=== PATIENT | female | born 1945 | race Caucasian/White ===

== ENCOUNTER 2017-07-13 14:42 | Emergency (ER) | payer OTHER ==
[~2017-07-13] VITALS: Ht 170.1 cm; Wt 60.3 kg
[~2017-07-13 14:42] MED LIST: AMLODIPINE BESYL5 MG PO; AMLODIPINE5 MG PO; ANTIVERT/2525 MG PO; GUAIFENESIN AND5 ML PO; LEVAQUIN750 M1 PO; PREDNISONE10 MG PO; ROBITUSSIN5 ML PO; TESSALON PERLE200 MG PO; THIOTHIXENE5 MG PO; ZITHROMAX Z PA250 MG PO; ZOFRAN ODT4 MG SL; ZYRTEC10 MG PO
[2017-07-13] MEDS ORDERED: NYST SUSP PO (15:28)
== END 2017-07-13 15:41 | disposition home or self-care (01) ==
LOC: ED 14:42
DX: B37.0 Candidal stomatitis (principal); F17.200 Nicotine dependence, unspecified, uncomplicated; J44.9 Chronic obstructive pulmonary disease, unspecified; I10 Essential (primary) hypertension; Z88.8 Allergy status to other drugs, medicaments and biological substances; Z98.42 Cataract extraction status, left eye; Z79.899 Other long term (current) drug therapy

== ENCOUNTER 2018-01-01 07:57 | Emergency (ER) | payer OTHER ==
[~2018-01-01] VITALS: Ht 165.1 cm; Wt 65.8 kg
[~2018-01-01 07:57] MED LIST changes: +NYST SUSP PO
== END 2018-01-01 09:50 | disposition home or self-care (01) ==
LOC: ED 07:57
DX: S93.602A Unspecified sprain of left foot, initial encounter (principal); J44.9 Chronic obstructive pulmonary disease, unspecified; I10 Essential (primary) hypertension; Z87.891 Personal history of nicotine dependence; Z79.899 Other long term (current) drug therapy; Z88.8 Allergy status to other drugs, medicaments and biological substances; X50.1XXA Overexertion from prolonged static or awkward postures, initial encounter; Y93.89 Activity, other specified; Y92.89 Other specified places as the place of occurrence of the external cause; Y99.9 Unspecified external cause status

== ENCOUNTER → 2018-06-22 | Outpatient (CLI) | payer OTHER | END | disposition home or self-care (01) | LOC: RAD 11:06 | DX: M81.0 Age-related osteoporosis without current pathological fracture (principal); S92.919D Unspecified fracture of unspecified toe(s), subsequent encounter for fracture with routine healing; Z78.0 Asymptomatic menopausal state; Z90.710 Acquired absence of both cervix and uterus; X58.XXXD Exposure to other specified factors, subsequent encounter ==

== ENCOUNTER 2020-11-05 17:09 | Emergency (ER) | payer OTHER ==
[2020-11-05 19:50] LABS: BILIRUBIN Negative (Negative); BLOOD Negative (Negative); CLARITY Clear (Clear); COLOR Yellow (Yellow); GLUCOSE Negative (Negative); KETONE Negative (Negative); LEUKO ESTERASE Negative (Negative); NITRITE Negative (Negative); SPECIFIC GRAVITY <= 1.005 (1.001-1.030); UROBILINOGEN 0.2 E.U./dl (0.0-1.0)
[2020-11-05 20:08] LABS: BACTERIA TRACE; WBC 0-2 wbc/hpf (0-5)
[2020-11-05 20:28] LABS: BASO # 0.1 10*3/uL (0.0-0.1); EOS # 0.1 10*3/uL (0.0-0.4); EOS % 1.9 % (1.0-4.0); HEMATOCRIT 47.6 % (37.0-47.0); LYMPH # 1.3 10*3/uL (1.3-4.4); LYMPH % 22.5 % (27.0-41.0); MEAN CELL VOLUME 88.1 fl (81.0-99.0); MEAN CORPUSCULAR HGB CONC 31.7 g/dl (33.0-37.0); MEAN PLATELET VOLUME 9.6 fl (9.6-12.3); MONO # 0.6 10*3/uL (0.1-1.0); MONO % 9.9 % (3.0-9.0); NEUT # 3.7 10*3/uL (2.3-7.9); NEUT % 64.4 % (47.0-73.0); PLATELET COUNT AUTOMATED 238 10*3/uL (130-400); RED CELL DISTRI WIDTH 14.9 % (0-14.5); WHITE BLOOD COUNT 5.7 10*3/uL (4.8-10.8)
[2020-11-05 20:44] LABS: ALBUMIN 3.9 gm/dl (3.1-4.5); ALKALINE PHOSPHATASE 70 U/L (45-117); BUN 9 mg/dl (7-24); CHLORIDE 103 mmol/L (98-107); CREATININE 0.65 mg/dL (0.55-1.02); LIPASE 67 U/L (73-393); POTASSIUM 4.1 mmol/L (3.5-5.1); SGOT/AST 14 IU/L (3-35); SGPT/ALT 15 U/L (12-78); SODIUM 139 mmol/L (136-145)
== END 2020-11-05 23:28 | disposition left against medical advice (07) ==
LOC: ED 17:09
PROVIDERS: Emergency Medicine
DX: R10.2 Pelvic and perineal pain (principal); R11.2 Nausea with vomiting, unspecified; J44.9 Chronic obstructive pulmonary disease, unspecified; F32.9 Major depressive disorder, single episode, unspecified; I10 Essential (primary) hypertension; Z90.711 Acquired absence of uterus with remaining cervical stump; Z88.8 Allergy status to other drugs, medicaments and biological substances; Z79.899 Other long term (current) drug therapy; Z98.890 Other specified postprocedural states; Z87.891 Personal history of nicotine dependence

== ENCOUNTER → 2021-01-08 | Outpatient (CLI) | payer OTHER ==
[2021-01-08 14:26] LABS: CREATININE 0.69 mg/dL (0.55-1.02)
== END | disposition home or self-care (01) ==
LOC: LAB 13:55 → MRI 15:00
PROVIDERS: Radiology Diagnostic Radiology; ATTEND Family Medicine
DX: Z01.818 Encounter for other preprocedural examination (principal); R93.5 Abnormal findings on diagnostic imaging of other abdominal regions, including retroperitoneum

== ENCOUNTER → 2021-01-28 | Outpatient (CLI) | payer OTHER ==
[2021-01-28 07:50] LABS: CREATININE 0.72 mg/dL (0.55-1.02)
== END | disposition home or self-care (01) ==
LOC: LAB 07:21 → CT 08:00
PROVIDERS: ATTEND Family Medicine
DX: S06.0X9A Concussion with loss of consciousness of unspecified duration, initial encounter (principal); E22.9 Hyperfunction of pituitary gland, unspecified; X58.XXXA Exposure to other specified factors, initial encounter

== ENCOUNTER → 2021-02-03 | Outpatient (CLI) | payer OTHER | END | disposition home or self-care (01) | LOC: US 01-29 14:00 | PROVIDERS: ATTEND Family Medicine | DX: R22.43 Localized swelling, mass and lump, lower limb, bilateral (principal); M79.606 Pain in leg, unspecified; R09.89 Other specified symptoms and signs involving the circulatory and respiratory systems ==

== ENCOUNTER 2022-01-02 17:09 | Emergency (ER) | payer OTHER ==
[~2022-01-02 17:09] MED LIST changes: +OMNICEF300 MG PO; +PROVENTIL HFA6.7 GM INH; +ZITHROMAX250 MG PO
[2022-01-02 17:44] LABS: BASO % 0.4 % (0.0-1.0); EOS % 0.1 % (1.0-4.0); HEMATOCRIT 44.6 % (37.0-47.0); LYMPH # 0.8 10*3/uL (1.3-4.4); LYMPH % 6.8 % (27.0-41.0); MEAN CELL VOLUME 88.1 fl (81.0-99.0); MEAN CORPUSCULAR HGB 28.7 pg (27.0-31.0); MEAN CORPUSCULAR HGB CONC 32.5 g/dl (33.0-37.0); MEAN PLATELET VOLUME 9.7 fl (9.6-12.3); MONO # 0.8 10*3/uL (0.1-1.0); MONO % 7.2 % (3.0-9.0); NEUT # 9.7 10*3/uL (2.3-7.9); NEUT % 85.1 % (47.0-73.0); PLATELET COUNT AUTOMATED 192 10*3/uL (130-400); RED BLOOD COUNT 5.06 10*6/uL (4.10-5.10); RED CELL DISTRI WIDTH 14.7 % (0-14.5); WHITE BLOOD COUNT 11.4 10*3/uL (4.8-10.8)
[2022-01-02 18:01] LABS: BUN 13 mg/dl (7-24); CHLORIDE 103 mmol/L (98-107); POTASSIUM 4.3 mmol/L (3.5-5.1); SGOT/AST 16 IU/L (3-35); SGPT/ALT 18 U/L (12-78); SODIUM 140 mmol/L (136-145); TOTAL PROTEIN 6.5 gm/dL (6.4-8.2)
[2022-01-02 18:02] LABS: ALKALINE PHOSPHATASE 77 U/L (45-117)
[2022-01-02 20:11] LABS: BILIRUBIN Negative (Negative); BLOOD Negative (Negative); CLARITY Clear (Clear); COLOR Yellow (Yellow); GLUCOSE Negative (Negative); KETONE 1+ (Negative); LEUKO ESTERASE Negative (Negative); NITRITE Negative (Negative); PH 7.5 (4.5-8.0)
[2022-01-02 20:32] LABS: BACTERIA 1+; EPITHELIAL CELLS TNTC; WBC 0-2 wbc/hpf (0-5)
[2022-01-02] MEDS ORDERED: Meclizine25 MG PO (22:12)
== END 2022-01-02 22:27 | disposition home or self-care (01) ==
LOC: ED 17:09
PROVIDERS: Emergency Medicine
DX: J44.1 Chronic obstructive pulmonary disease with (acute) exacerbation (principal); R42 Dizziness and giddiness; F17.210 Nicotine dependence, cigarettes, uncomplicated; Z98.890 Other specified postprocedural states; Z79.899 Other long term (current) drug therapy; Z88.8 Allergy status to other drugs, medicaments and biological substances; Z79.2 Long term (current) use of antibiotics

== ENCOUNTER → 2022-05-04 | Outpatient (CLI) | payer OTHER ==
[~2022-05-04] MED LIST changes: +Meclizine25 MG PO
== END | disposition home or self-care (01) ==
LOC: US 04-22 10:00
PROVIDERS: ATTEND Family Medicine
DX: R60.0 Localized edema (principal)

== ENCOUNTER 2023-04-26 22:01 | Emergency (ER) | payer OTHER ==
[~2023-04-26] VITALS: Wt 65.0 kg
[~2023-04-26 22:01] MED LIST changes: +ALLERGY RELIEF5 MG PO; +CEFDINIR300 MG PO; +METOPROLOL SUCC25 M2 PO; +NAVANE5 MG PO; +NORVASC5 MG PO; +TRELEGY ELLIPT1 EACH INH; +XARE20MG PO
[2023-04-26 22:41] LABS: BASO # 0.1 10*3/uL (0.0-0.1); BASO % 0.6 % (0.0-1.0); EOS # 0.1 10*3/uL (0.0-0.4); EOS % 0.8 % (1.0-4.0); HEMATOCRIT 42.8 % (37.0-47.0); LYMPH # 0.8 10*3/uL (1.3-4.4); LYMPH % 9.8 % (27.0-41.0); MEAN CELL VOLUME 87.5 fl (81.0-99.0); MEAN PLATELET VOLUME 9.5 fl (9.6-12.3); MONO % 13.2 % (3.0-9.0); NEUT # 5.9 10*3/uL (2.3-7.9); NEUT % 75.2 % (47.0-73.0); PLATELET COUNT AUTOMATED 203 10*3/uL (130-400); RED BLOOD COUNT 4.89 10*6/uL (4.10-5.10); RED CELL DISTRI WIDTH 14.3 % (0-14.5); WHITE BLOOD COUNT 7.9 10*3/uL (4.8-10.8)
[2023-04-26 23:04] LABS: ALKALINE PHOSPHATASE 98 U/L (46-116); BUN 9 mg/dl (9-23); CHLORIDE 99 mmol/L (98-107); POTASSIUM 3.9 mmol/L (3.4-5.1); TOTAL PROTEIN 7.4 gm/dL (6.0-8.0)
[2023-04-26 23:05] LABS: SGPT/ALT < 7 U/L (5-49)
[2023-04-26] MEDS ORDERED: PREDNISONE20 M1 PO (23:27)
== END 2023-04-26 23:49 | disposition home or self-care (01) ==
LOC: ED 22:01
PROVIDERS: Nurse Practitioner
DX: J11.1 Influenza due to unidentified influenza virus with other respiratory manifestations (principal); B97.4 Respiratory syncytial virus as the cause of diseases classified elsewhere; I10 Essential (primary) hypertension; J44.9 Chronic obstructive pulmonary disease, unspecified; Z88.8 Allergy status to other drugs, medicaments and biological substances; Z90.711 Acquired absence of uterus with remaining cervical stump; Z98.890 Other specified postprocedural states; F17.290 Nicotine dependence, other tobacco product, uncomplicated; Z20.822 Contact with and (suspected) exposure to COVID-19

== ENCOUNTER 2023-10-17 09:31 | Emergency (ER) | payer OTHER ==
[~2023-10-17] VITALS: Ht 170.1 cm; Wt 54.4 kg
[~2023-10-17 09:31] MED LIST changes: +Carafate1 GM PO; +DEXAMETHASONE6 MG PO; +DOXYCYCLINE HY100 M3 PO; +ELIQUIS5 M1 PO; +LISINOPRIL5 MG PO; +PACERONE200 MG PO; +PREDNISONE20 M1 PO; +VIBRAMYCIN HYC100 MG PO; +VITAMIN D350 MC2 PO
[2023-10-17] MEDS ORDERED: AMIODARONE HYD200 MG PO (10:17)
[2023-10-17] MEDS ORDERED: POTASSIUM CHLO20 ME3 PO (10:19)
[2023-10-17] MEDS ORDERED: ALBUTEROL HFA 90 MCG INH (10:21)
[2023-10-17 10:48] LABS: BASO # 0.1 10*3/uL (0.0-0.1); BASO % 0.8 % (0.0-1.0); EOS # 0.2 10*3/uL (0.0-0.4); EOS % 2.7 % (1.0-4.0); HEMATOCRIT 36.7 % (37.0-47.0); LYMPH # 1.2 10*3/uL (1.3-4.4); LYMPH % 17.5 % (27.0-41.0); MEAN CELL VOLUME 93.1 fl (81.0-99.0); MEAN CORPUSCULAR HGB 26.9 pg (27.0-31.0); MEAN CORPUSCULAR HGB CONC 28.9 g/dl (33.0-37.0); MEAN PLATELET VOLUME 10.1 fl (9.6-12.3); MONO # 0.9 10*3/uL (0.1-1.0); NEUT # 4.3 10*3/uL (2.3-7.9); NEUT % 65.7 % (47.0-73.0); PLATELET COUNT AUTOMATED 153 10*3/uL (130-400); RED BLOOD COUNT 3.94 10*6/uL (4.10-5.10); RED CELL DISTRI WIDTH 15.3 % (0-14.5); WHITE BLOOD COUNT 6.6 10*3/uL (4.8-10.8)
[2023-10-17 11:09] LABS: ALKALINE PHOSPHATASE 57 U/L (46-116); BUN 10 mg/dl (9-23); CHLORIDE 97 mmol/L (98-107); LIPASE 37 U/L (12-53); POTASSIUM 3.9 mmol/L (3.4-5.1); TOTAL PROTEIN 6.3 gm/dL (6.0-8.0)
[2023-10-17 11:14] LABS: SGPT/ALT < 7 U/L (5-49)
[2023-10-17] MEDS ORDERED: Albuterol Sulf/Ipratropium 3 ML VIAL NEB ONE (11:25)
[2023-10-17] MEDS ORDERED: methylPREDNISolone sod succ 125 MG VIAL IV ONE (11:25)
[2023-10-17] MEDS ORDERED: GOOD NEIGHBOR M25 M1 PO (13:33)
[2023-10-17] MEDS ORDERED: AMOX-CLAV 875-1 EACH PO (13:33)
== END 2023-10-17 13:36 | disposition home or self-care (01) ==
LOC: ED 09:31
PROVIDERS: Internal Medicine
DX: J44.9 Chronic obstructive pulmonary disease, unspecified (principal); R42 Dizziness and giddiness; R53.1 Weakness; I10 Essential (primary) hypertension; F41.9 Anxiety disorder, unspecified; I48.91 Unspecified atrial fibrillation; Z88.8 Allergy status to other drugs, medicaments and biological substances; Z88.7 Allergy status to serum and vaccine; Z91.018 Allergy to other foods; Z98.890 Other specified postprocedural states; Z90.711 Acquired absence of uterus with remaining cervical stump; F17.200 Nicotine dependence, unspecified, uncomplicated

== ENCOUNTER 2024-01-13 21:15 | Inpatient (IN) | payer OTHER ==
[~2024-01-13] VITALS: Ht 170.1 cm; Wt 54.4 kg
[~2024-01-13 21:15] MED LIST changes: +ALBUTEROL HFA 90 MCG INH; +AMIODARONE HYD200 MG PO; +AMOX-CLAV 875-1 EACH PO; +GOOD NEIGHBOR M25 M1 PO; +POTASSIUM CHLO20 ME3 PO
[2024-01-13 21:17] VITALS: BP 117/54
[2024-01-13 21:57] LABS: BASO % 0.5 % (0.0-1.0); EOS # 0.1 10*3/uL (0.0-0.4); EOS % 1.4 % (1.0-4.0); HEMATOCRIT 36.9 % (37.0-47.0); MEAN CELL VOLUME 91.8 fl (81.0-99.0); MEAN CORPUSCULAR HGB 27.6 pg (27.0-31.0); MEAN CORPUSCULAR HGB CONC 30.1 g/dl (33.0-37.0); MEAN PLATELET VOLUME 10.8 fl (9.6-12.3); MONO # 0.9 10*3/uL (0.1-1.0); MONO % 15.2 % (3.0-9.0); NEUT # 3.6 10*3/uL (2.3-7.9); NEUT % 63.8 % (47.0-73.0); PLATELET COUNT AUTOMATED 164 10*3/uL (130-400); RED BLOOD COUNT 4.02 10*6/uL (4.10-5.10); RED CELL DISTRI WIDTH 14.6 % (0-14.5); WHITE BLOOD COUNT 5.7 10*3/uL (4.8-10.8)
[2024-01-13 22:14] LABS: BUN 15 mg/dl (9-23); CHLORIDE 100 mmol/L (98-107); POTASSIUM 3.8 mmol/L (3.4-5.1)
[2024-01-13] MEDS ORDERED: Albuterol Sulf/Ipratropium 3 ML VIAL NEB ONE (23:55)
[2024-01-13] MEDS ORDERED: methylPREDNISolone sod succ 125 MG VIAL IV ONE (23:55)
[2024-01-14] MEDS ORDERED: Ceftriaxone Sodium 1 GM/10 ML SYR IV ONE (01:45)
[2024-01-14] MEDS ORDERED: Doxycycline Hyclate 100 MG in SODIUM CHLORIDE 0.9% 250 ML IV ONE (01:50)
[2024-01-14 02:19] VITALS: BP 158/77
[2024-01-14] MEDS ORDERED: ACETAMINOPHEN 325 MG TAB PO PRN (02:20)
[2024-01-14] MEDS ORDERED: BISACODYL 5 MG TAB PO PRN (02:20)
[2024-01-14] MEDS ORDERED: Magnesium Hydroxide 30 ML UDC PO PRN (02:20)
[2024-01-14] MEDS ORDERED: BISACODYL 10 MG SUPP R PRN (02:20)
[2024-01-14] MEDS ORDERED: ACETAMINOPHEN 650 MG SUPP R PRN (02:20)
[2024-01-14] MEDS ORDERED: Albuterol Sulf/Ipratropium 3 ML VIAL NEB SCH (02:25)
[2024-01-14 05:16] LABS: ALKALINE PHOSPHATASE 65 U/L (46-116); BUN 17 mg/dl (9-23); CHLORIDE 102 mmol/L (98-107); POTASSIUM 3.8 mmol/L (3.4-5.1); TOTAL PROTEIN 6.1 gm/dL (6.0-8.0)
[2024-01-14 05:19] LABS: SGPT/ALT < 7 U/L (5-49)
[2024-01-14 06:15] LABS: BASO % 0.4 % (0.0-1.0); EOS % 0.2 % (1.0-4.0); HEMATOCRIT 36.1 % (37.0-47.0); LYMPH # 0.3 10*3/uL (1.3-4.4); LYMPH % 7.3 % (27.0-41.0); MEAN CELL VOLUME 89.8 fl (81.0-99.0); MEAN CORPUSCULAR HGB 27.6 pg (27.0-31.0); MEAN CORPUSCULAR HGB CONC 30.7 g/dl (33.0-37.0); MEAN PLATELET VOLUME 10.6 fl (9.6-12.3); MONO # 0.1 10*3/uL (0.1-1.0); MONO % 2.4 % (3.0-9.0); NEUT % 89.3 % (47.0-73.0); PLATELET COUNT AUTOMATED 153 10*3/uL (130-400); RED BLOOD COUNT 4.02 10*6/uL (4.10-5.10); RED CELL DISTRI WIDTH 14.7 % (0-14.5); WHITE BLOOD COUNT 4.5 10*3/uL (4.8-10.8)
[2024-01-14 06:59] VITALS: BP 136/63
[2024-01-14] MEDS ORDERED: Doxycycline Hyclate 100 MG VIAL IV ONE (08:57)
[2024-01-14] MEDS ORDERED: SODIUM CHLORIDE 0.9% 250 ML BAG IV ONE (08:57)
[2024-01-14] MEDS ORDERED: methylPREDNISolone sod succ 40 MG VIAL IV SCH (10:00)
[2024-01-14] MEDS ORDERED: APIXABAN 5 MG TAB PO SCH (10:00)
[2024-01-14] MEDS ORDERED: Doxycycline Hyclate 100 MG in SODIUM CHLORIDE 0.9% 250 ML IV SCH (10:00)
[2024-01-14 11:52] VITALS: BP 151/95
[2024-01-14 12:45] VITALS: BP 144/88
[2024-01-14 16:00] VITALS: BP 142/87
[2024-01-14] MEDS ORDERED: Meclizine Hydrochloride 25 MG TAB PO PRN (16:35)
[2024-01-14] MEDS ORDERED: SUCRALFATE 1 GM TAB PO SCH (18:00)
[2024-01-14 20:00] VITALS: BP 137/77
[2024-01-14] MEDS ORDERED: Ceftriaxone Sodium 1 GM in SYRINGE INFUSION 10 ML IV SCH (22:00)
[2024-01-15] VITALS: BP 151/85
[2024-01-15 05:35] LABS: BUN 22 mg/dl (9-23); CHLORIDE 100 mmol/L (98-107); POTASSIUM 3.9 mmol/L (3.4-5.1)
[2024-01-15 06:04] LABS: BASO % 0.1 % (0.0-1.0); LYMPH # 0.5 10*3/uL (1.3-4.4); LYMPH % 4.4 % (27.0-41.0); MEAN CELL VOLUME 87.9 fl (81.0-99.0); MEAN CORPUSCULAR HGB 27.5 pg (27.0-31.0); MEAN CORPUSCULAR HGB CONC 31.3 g/dl (33.0-37.0); MEAN PLATELET VOLUME 10.7 fl (9.6-12.3); MONO # 0.5 10*3/uL (0.1-1.0); NEUT # 9.2 10*3/uL (2.3-7.9); PLATELET COUNT AUTOMATED 149 10*3/uL (130-400); RED BLOOD COUNT 3.64 10*6/uL (4.10-5.10); WHITE BLOOD COUNT 10.2 10*3/uL (4.8-10.8)
[2024-01-15 08:00] VITALS: BP 148/80
[2024-01-15] MEDS ORDERED: Magnesium Hydroxide 30 ML UDC PO PRN (09:25)
[2024-01-15] MEDS ORDERED: BISACODYL 10 MG SUPP R PRN (09:25)
[2024-01-15] MEDS ORDERED: BISACODYL 5 MG TAB PO PRN (09:25)
[2024-01-15] MEDS ORDERED: SODIUM CHLORIDE 0.9% 250 ML BAG IV ONE (09:25)
[2024-01-15] MEDS ORDERED: Albuterol Sulf/Ipratropium 3 ML VIAL NEB SCH (09:25)
[2024-01-15] MEDS ORDERED: ACETAMINOPHEN 650 MG SUPP R PRN (09:25)
[2024-01-15] MEDS ORDERED: ACETAMINOPHEN 325 MG TAB PO PRN (09:25)
[2024-01-15] MEDS ORDERED: Meclizine Hydrochloride 25 MG TAB PO PRN (09:30)
[2024-01-15] MEDS ORDERED: Amiodarone Hydrochloride 200 MG TAB PO SCH ×2 (10:00)
[2024-01-15] MEDS ORDERED: LISINOPRIL 5 MG TAB PO SCH ×2 (10:00)
[2024-01-15] MEDS ORDERED: APIXABAN 5 MG TAB PO SCH (10:00)
[2024-01-15] MEDS ORDERED: POTASSIUM CHLORIDE 20 MEQ TAB PO SCH ×2 (10:00)
[2024-01-15] MEDS ORDERED: METOPROLOL SUCCINATE XR 25 MG TAB PO SCH ×2 (10:00)
[2024-01-15] MEDS ORDERED: SUCRALFATE 1 GM TAB PO SCH (10:00)
[2024-01-15] MEDS ORDERED: Doxycycline Hyclate 100 MG in SODIUM CHLORIDE 0.9% 250 ML IV SCH (10:00)
[2024-01-15] MEDS ORDERED: methylPREDNISolone sod succ 40 MG VIAL IV SCH (10:00)
[2024-01-15] MEDS ORDERED: THIOTHIXENE 1 MG CAP PO SCH ×2 (10:00)
[2024-01-15 12:00] VITALS: BP 125/63
[2024-01-15 16:00] VITALS: BP 128/62
[2024-01-15 20:00] VITALS: BP 110/54
[2024-01-15] MEDS ORDERED: Ceftriaxone Sodium 1 GM in SYRINGE INFUSION 10 ML IV SCH (22:00)
[2024-01-16] VITALS: BP 141/64
[2024-01-16 06:31] LABS: BASO % 0.1 % (0.0-1.0); HEMATOCRIT 36.3 % (37.0-47.0); LYMPH # 0.7 10*3/uL (1.3-4.4); LYMPH % 6.2 % (27.0-41.0); MEAN CORPUSCULAR HGB 27.1 pg (27.0-31.0); MEAN CORPUSCULAR HGB CONC 29.5 g/dl (33.0-37.0); MEAN PLATELET VOLUME 10.6 fl (9.6-12.3); MONO # 0.6 10*3/uL (0.1-1.0); MONO % 5.5 % (3.0-9.0); NEUT # 9.5 10*3/uL (2.3-7.9); NEUT % 87.2 % (47.0-73.0); PLATELET COUNT AUTOMATED 182 10*3/uL (130-400); RED BLOOD COUNT 3.95 10*6/uL (4.10-5.10); RED CELL DISTRI WIDTH 15.2 % (0-14.5); WHITE BLOOD COUNT 10.9 10*3/uL (4.8-10.8)
[2024-01-16 06:49] LABS: MEAN CELL VOLUME 91.9 fl (81.0-99.0)
[2024-01-16 06:52] LABS: BUN 25 mg/dl (9-23); CHLORIDE 102 mmol/L (98-107); POTASSIUM 4.2 mmol/L (3.4-5.1)
[2024-01-16 08:00] VITALS: BP 115/66
[2024-01-16] MEDS ORDERED: LEPTOSPERMUM HONEY 4 X 5 INCH WOUND DRESSING T ONE (08:44)
[2024-01-16] MEDS ORDERED: PREDNISONE10 MG PO (11:43)
[2024-01-16 12:00] VITALS: BP 99/80
== END 2024-01-16 15:05 | disposition home or self-care (01) | DRG 190 ==
LOC: ED 21:15 → 4E 01-14 01:43 → EDHOLD 01-14 01:43 → 4E 01-14 12:36
PROVIDERS: Emergency Medicine; Family Medicine; Student in an Organized Health Care Education/Training Program; ADMIT Internal Medicine; ATTEND Internal Medicine
DX: J44.1 Chronic obstructive pulmonary disease with (acute) exacerbation (principal); J18.9 Pneumonia, unspecified organism; D64.9 Anemia, unspecified; F32.A Depression, unspecified; I10 Essential (primary) hypertension; I48.91 Unspecified atrial fibrillation; F20.9 Schizophrenia, unspecified; D72.810 Lymphocytopenia; J44.0 Chronic obstructive pulmonary disease with (acute) lower respiratory infection; R73.9 Hyperglycemia, unspecified; E78.2 Mixed hyperlipidemia; Z66 Do not resuscitate; Z88.1 Allergy status to other antibiotic agents; Z88.8 Allergy status to other drugs, medicaments and biological substances; Z91.018 Allergy to other foods; Z91.09 Other allergy status, other than to drugs and biological substances; Z79.899 Other long term (current) drug therapy; Z79.01 Long term (current) use of anticoagulants; Z79.2 Long term (current) use of antibiotics; Z87.891 Personal history of nicotine dependence; Z98.42 Cataract extraction status, left eye; Z90.711 Acquired absence of uterus with remaining cervical stump; Z82.49 Family history of ischemic heart disease and other diseases of the circulatory system; Z81.8 Family history of other mental and behavioral disorders; Z80.8 Family history of malignant neoplasm of other organs or systems; Z88.7 Allergy status to serum and vaccine

== ENCOUNTER 2024-02-06 09:51 | Inpatient (IN) | payer OTHER ==
[~2024-02-06] VITALS: Ht 170 cm; Wt 59.2 kg
[2024-02-06] VITALS (9 sets, daily range): BP systolic 86–144; BP diastolic 45–85
[2024-02-06] MEDS ORDERED: Albuterol Sulf/Ipratropium 3 ML VIAL NEB ONE (10:05)
[2024-02-06 10:29] LABS: BASO % 0.3 % (0.0-1.0); EOS # 0.2 10*3/uL (0.0-0.4); EOS % 2.8 % (1.0-4.0); HEMATOCRIT 38.2 % (37.0-47.0); LYMPH # 1.1 10*3/uL (1.3-4.4); LYMPH % 17.6 % (27.0-41.0); MEAN CELL VOLUME 95.3 fl (81.0-99.0); MEAN CORPUSCULAR HGB 27.4 pg (27.0-31.0); MEAN CORPUSCULAR HGB CONC 28.8 g/dl (33.0-37.0); MEAN PLATELET VOLUME 9.1 fl (9.6-12.3); MONO # 0.7 10*3/uL (0.1-1.0); MONO % 10.7 % (3.0-9.0); NEUT # 4.4 10*3/uL (2.3-7.9); NEUT % 68.3 % (47.0-73.0); PLATELET COUNT AUTOMATED 147 10*3/uL (130-400); RED BLOOD COUNT 4.01 10*6/uL (4.10-5.10); RED CELL DISTRI WIDTH 15.4 % (0-14.5); WHITE BLOOD COUNT 6.4 10*3/uL (4.8-10.8)
[2024-02-06 10:44] LABS: ACT PARTIAL THROMBO TIME 26.4 SECONDS (20.0-32.1)
[2024-02-06 10:49] LABS: BUN 12 mg/dl (9-23); CHLORIDE 98 mmol/L (98-107); POTASSIUM 4.3 mmol/L (3.4-5.1)
[2024-02-06 11:43] LABS: ABG BASE EXCESS 12.6 mmol/L (-2.0-2.0); ARTERIAL BLOOD GAS PH 7.362 (7.35-7.45)
[2024-02-06] MEDS ORDERED: LORazepam 2 MG/ML VIAL IV ONE (13:50)
[2024-02-06] MEDS ORDERED: AZITHROMYCIN 250 MG TAB PO ONE (15:15)
[2024-02-06] MEDS ORDERED: Ceftriaxone Sodium 1 GM/10 ML SYR IV ONE (15:15)
[2024-02-06] MEDS ORDERED: methylPREDNISolone sod succ 125 MG VIAL IV ONE (15:15)
[2024-02-06] MEDS ORDERED: Ondansetron Hydrochloride 4 MG/2 ML VIAL IV PRN (16:00)
[2024-02-06] MEDS ORDERED: ACETAMINOPHEN 325 MG TAB PO PRN (16:00)
[2024-02-06] MEDS ORDERED: MORPHINE Sulfate 2 MG/ML SYR IV PRN (16:00)
[2024-02-06] MEDS ORDERED: Albuterol Sulf/Ipratropium 3 ML VIAL NEB SCH (19:10)
[2024-02-06] MEDS ORDERED: SODIUM CHLORIDE 0.9% 1,000 ML IV ONE ×2 (19:45→20:10)
[2024-02-06] MEDS ORDERED: METOPROLOL SUCCINATE XR 25 MG TAB PO SCH (21:45)
[2024-02-06] MEDS ORDERED: APIXABAN 5 MG TAB PO SCH (22:00)
[2024-02-06] MEDS ORDERED: GUAIFENESIN 600 MG TAB ER PO SCH (22:00)
[2024-02-07] VITALS (8 sets, daily range): BP systolic 89–133; BP diastolic 50–90
[2024-02-07] MEDS ORDERED: Metoprolol Tartrate 5 MG/5 ML VIAL IV ONE (05:00)
[2024-02-07] MEDS ORDERED: SODIUM CHLORIDE 0.9% 1,000 ML IV ONE (05:05)
[2024-02-07] MEDS ORDERED: methylPREDNISolone sod succ 40 MG VIAL IV SCH (06:00)
[2024-02-07 06:57] LABS: BASO % 0.2 % (0.0-1.0); HEMATOCRIT 38.4 % (37.0-47.0); LYMPH # 0.6 10*3/uL (1.3-4.4); MEAN CELL VOLUME 92.5 fl (81.0-99.0); MEAN CORPUSCULAR HGB 27.5 pg (27.0-31.0); MEAN CORPUSCULAR HGB CONC 29.7 g/dl (33.0-37.0); MEAN PLATELET VOLUME 9.8 fl (9.6-12.3); MONO # 0.1 10*3/uL (0.1-1.0); MONO % 1.9 % (3.0-9.0); NEUT % 86.2 % (47.0-73.0); PLATELET COUNT AUTOMATED 168 10*3/uL (130-400); RED BLOOD COUNT 4.15 10*6/uL (4.10-5.10); RED CELL DISTRI WIDTH 15.2 % (0-14.5); WHITE BLOOD COUNT 5.8 10*3/uL (4.8-10.8)
[2024-02-07 07:12] LABS: ALKALINE PHOSPHATASE 59 U/L (46-116); CHLORIDE 99 mmol/L (98-107); FREE T4 1.39 ng/dl (0.89-1.76); POTASSIUM 4.6 mmol/L (3.4-5.1); SGPT/ALT 8 U/L (5-49); TOTAL PROTEIN 5.4 gm/dL (6.0-8.0)
[2024-02-07 07:13] LABS: BUN 23 mg/dl (9-23)
[2024-02-07] MEDS ORDERED: THIOTHIXENE 1 MG CAP PO SCH (10:00)
[2024-02-07] MEDS ORDERED: Amiodarone Hydrochloride 200 MG TAB PO SCH (10:00)
[2024-02-07] MEDS ORDERED: LISINOPRIL 5 MG TAB PO SCH (10:00)
[2024-02-07] MEDS ORDERED: Ceftriaxone Sodium 1 GM in SYRINGE INFUSION 10 ML IV SCH (16:00)
[2024-02-07] MEDS ORDERED: AZITHROMYCIN 250 ML IV SCH (17:00)
[2024-02-08] VITALS: BP 131/61
[2024-02-08 01:14] LABS: BILIRUBIN Negative (Negative); BLOOD Negative (Negative); CLARITY Clear (Clear); COLOR Yellow (Yellow); GLUCOSE 3+ (Negative); KETONE Negative (Negative); LEUKO ESTERASE Negative (Negative); NITRITE Negative (Negative); PH 5.5 (4.5-8.0); SPECIFIC GRAVITY >= 1.030 (1.001-1.030); UROBILINOGEN 0.2 E.U./dl (0.0-1.0)
[2024-02-08 01:48] LABS: BACTERIA TRACE; EPITHELIAL CELLS 16-20; WBC 0-2 wbc/hpf (0-5)
[2024-02-08 04:00] VITALS: BP 149/65
[2024-02-08 06:44] LABS: LYMPH # 0.5 10*3/uL (1.3-4.4); LYMPH % 5.4 % (27.0-41.0); MEAN CELL VOLUME 90.4 fl (81.0-99.0); MEAN CORPUSCULAR HGB 27.1 pg (27.0-31.0); MEAN PLATELET VOLUME 9.9 fl (9.6-12.3); MONO # 0.7 10*3/uL (0.1-1.0); MONO % 7.8 % (3.0-9.0); NEUT # 7.7 10*3/uL (2.3-7.9); NEUT % 86.3 % (47.0-73.0); PLATELET COUNT AUTOMATED 166 10*3/uL (130-400); RED BLOOD COUNT 3.65 10*6/uL (4.10-5.10); RED CELL DISTRI WIDTH 15.7 % (0-14.5); WHITE BLOOD COUNT 8.9 10*3/uL (4.8-10.8)
[2024-02-08 08:00] VITALS: BP 155/79
[2024-02-08 08:02] LABS: BUN 26 mg/dl (9-23); CHLORIDE 102 mmol/L (98-107); POTASSIUM 4.5 mmol/L (3.4-5.1)
[2024-02-08 12:00] VITALS: BP 131/70
[2024-02-08] MEDS ORDERED: PREDNISONE10 MG PO (13:48)
[2024-02-08] MEDS ORDERED: ZITHROMAX250 MG PO (13:48)
[2024-02-08] MEDS ORDERED: MUCUS RELIEF600 MG PO (13:48)
== END 2024-02-08 15:32 | disposition home or self-care (01) | DRG 189 ==
LOC: ED 09:51 → EDHOLD 15:25 → ICCU 02-07 13:29
PROVIDERS: Internal Medicine; ADMIT Internal Medicine; ATTEND Internal Medicine
PROC: 5A09357 Assistance with Respiratory Ventilation, Less than 24 Consecutive Hours, Continuous Positive Airway Pressure (ICD-10-PCS; principal; 2024-02-06)
DX: J96.01 Acute respiratory failure with hypoxia (principal); J44.1 Chronic obstructive pulmonary disease with (acute) exacerbation; F33.9 Major depressive disorder, recurrent, unspecified; J44.0 Chronic obstructive pulmonary disease with (acute) lower respiratory infection; J96.02 Acute respiratory failure with hypercapnia; F20.9 Schizophrenia, unspecified; Z66 Do not resuscitate; I10 Essential (primary) hypertension; R73.9 Hyperglycemia, unspecified; J20.9 Acute bronchitis, unspecified; I07.1 Rheumatic tricuspid insufficiency; D64.9 Anemia, unspecified; I48.0 Paroxysmal atrial fibrillation; E55.9 Vitamin D deficiency, unspecified; E78.2 Mixed hyperlipidemia; J44.9 Chronic obstructive pulmonary disease, unspecified; Z87.891 Personal history of nicotine dependence; Z90.710 Acquired absence of both cervix and uterus; Z82.0 Family history of epilepsy and other diseases of the nervous system; Z82.49 Family history of ischemic heart disease and other diseases of the circulatory system; Z88.7 Allergy status to serum and vaccine; Z88.8 Allergy status to other drugs, medicaments and biological substances; Z79.899 Other long term (current) drug therapy

== ENCOUNTER 2024-03-07 14:58 | Inpatient (IN) | payer OTHER ==
[~2024-03-07] VITALS: Ht 167.6 cm; Wt 56.2 kg
[~2024-03-07 14:58] MED LIST changes: +HYOSCYAMINE0.125 M2 SL; +LORAZEPAM0.5 M1 PO; +MUCUS RELIEF600 MG PO
[2024-03-07 15:06] VITALS: BP 113/70
[2024-03-07] MEDS ORDERED: VENTOLIN 02.5 MG/3 M INH (15:10)
[2024-03-07 15:24] LABS: BASO % 0.6 % (0.0-1.0); EOS % 0.6 % (1.0-4.0); HEMATOCRIT 34.7 % (37.0-47.0); LYMPH # 0.9 10*3/uL (1.3-4.4); LYMPH % 14.3 % (27.0-41.0); MEAN CELL VOLUME 95.9 fl (81.0-99.0); MEAN CORPUSCULAR HGB 27.9 pg (27.0-31.0); MEAN CORPUSCULAR HGB CONC 29.1 g/dl (33.0-37.0); MEAN PLATELET VOLUME 9.4 fl (9.6-12.3); MONO # 0.9 10*3/uL (0.1-1.0); MONO % 15.1 % (3.0-9.0); NEUT # 4.3 10*3/uL (2.3-7.9); NEUT % 68.6 % (47.0-73.0); PLATELET COUNT AUTOMATED 209 10*3/uL (130-400); RED BLOOD COUNT 3.62 10*6/uL (4.10-5.10); RED CELL DISTRI WIDTH 15.8 % (0-14.5); WHITE BLOOD COUNT 6.2 10*3/uL (4.8-10.8)
[2024-03-07 15:42] LABS: BUN 17 mg/dl (9-23); CHLORIDE 98 mmol/L (98-107); POTASSIUM 3.9 mmol/L (3.4-5.1)
[2024-03-07] MEDS ORDERED: Albuterol Sulf/Ipratropium 3 ML VIAL NEB ONE (16:00)
[2024-03-07] MEDS ORDERED: methylPREDNISolone sod succ 125 MG VIAL IV ONE (16:00)
[2024-03-07 16:23] LABS: VENOUS BLOOD GAS O2 SAT 69.2 % (60.0-85.0)
[2024-03-07 16:32] LABS: ABG O2 SATURATION 96.3 % (94.0-98.0); ARTERIAL BLOOD GAS PH 7.346 (7.350-7.450); ARTERIAL BLOOD GAS PO2 90.9 mmHg (83.0-108.0)
[2024-03-07 16:33] LABS: ABG BASE EXCESS 10.3 mmol/L (-2.0-3.0)
[2024-03-07] MEDS ORDERED: AZITHROMYCIN 250 ML IV ONE (16:35)
[2024-03-07] MEDS ORDERED: Ceftriaxone Sodium 1 GM/10 ML SYR IV ONE (16:35)
[2024-03-07] MEDS ORDERED: Metoprolol Tartrate 5 MG/5 ML VIAL IV ONE (16:50)
[2024-03-07] MEDS ORDERED: LORazepam 2 MG/ML VIAL IM ONE (17:00)
[2024-03-07 17:15] VITALS: BP 122/68
[2024-03-07] MEDS ORDERED: Magnesium Hydroxide 30 ML UDC PO PRN (18:05)
[2024-03-07] MEDS ORDERED: ACETAMINOPHEN 650 MG SUPP R PRN (18:05)
[2024-03-07] MEDS ORDERED: BISACODYL 10 MG SUPP R PRN (18:05)
[2024-03-07] MEDS ORDERED: TEMAZEPAM 15 MG CAP PO PRN (18:05)
[2024-03-07] MEDS ORDERED: BISACODYL 5 MG TAB PO PRN (18:05)
[2024-03-07] MEDS ORDERED: ACETAMINOPHEN 325 MG TAB PO PRN (18:05)
[2024-03-07] MEDS ORDERED: SODIUM CHLORIDE 0.9% 1,000 ML IV SCH (18:35)
[2024-03-07 19:44] VITALS: BP 108/76
[2024-03-07 19:53] VITALS: BP 196/100
[2024-03-07] MEDS ORDERED: Albuterol Sulf/Ipratropium 3 ML VIAL NEB SCH (20:00)
[2024-03-07 20:22] LABS: ABG O2 SATURATION 97.9 % (94.0-98.0); ARTERIAL BLOOD GAS PH 7.359 (7.350-7.450); ARTERIAL BLOOD GAS PO2 97.3 mmHg (83.0-108.0)
[2024-03-07 20:25] LABS: ABG BASE EXCESS 14.2 mmol/L (-2.0-3.0)
[2024-03-07] MEDS ORDERED: GUAIFENESIN 600 MG TAB ER PO SCH (22:00)
[2024-03-08] VITALS (8 sets, daily range): BP systolic 94–146; BP diastolic 51–86
[2024-03-08] MEDS ORDERED: Ceftriaxone Sodium 1 GM in SYRINGE INFUSION 10 ML IV SCH (06:00)
[2024-03-08] MEDS ORDERED: LORazepam 0.5 MG TAB PO PRN (07:00)
[2024-03-08] MEDS ORDERED: HYOSCYAMINE SULFATE 0.125 MG TAB SL PRN (07:00)
[2024-03-08 07:09] LABS: BASO % 0.2 % (0.0-1.0); HEMATOCRIT 36.4 % (37.0-47.0); LYMPH # 0.4 10*3/uL (1.3-4.4); LYMPH % 8.7 % (27.0-41.0); MEAN CELL VOLUME 94.3 fl (81.0-99.0); MEAN CORPUSCULAR HGB 27.5 pg (27.0-31.0); MEAN CORPUSCULAR HGB CONC 29.1 g/dl (33.0-37.0); MEAN PLATELET VOLUME 10.6 fl (9.6-12.3); MONO # 0.2 10*3/uL (0.1-1.0); MONO % 4.3 % (3.0-9.0); NEUT # 3.8 10*3/uL (2.3-7.9); NEUT % 85.9 % (47.0-73.0); PLATELET COUNT AUTOMATED 268 10*3/uL (130-400); RED BLOOD COUNT 3.86 10*6/uL (4.10-5.10); RED CELL DISTRI WIDTH 15.8 % (0-14.5); WHITE BLOOD COUNT 4.4 10*3/uL (4.8-10.8)
[2024-03-08 07:23] LABS: ALKALINE PHOSPHATASE 72 U/L (46-116); BUN 23 mg/dl (9-23); CHLORIDE 97 mmol/L (98-107); POTASSIUM 4.2 mmol/L (3.4-5.1); SGPT/ALT 22 U/L (5-49); TOTAL PROTEIN 5.9 gm/dL (6.0-8.0)
[2024-03-08] MEDS ORDERED: Metoprolol Tartrate 5 MG/5 ML VIAL IV ONE ×2 (09:00→09:10)
[2024-03-08] MEDS ORDERED: SODIUM CHLORIDE 0.9% 100 ML BAG IV ONE (09:05)
[2024-03-08] MEDS ORDERED: IOHEXOL 350 MG/ML 100 ML VIAL IV ONE (09:05)
[2024-03-08] MEDS ORDERED: DILTIAZEM HYDROCHLORIDE IV SCH (09:20)
[2024-03-08] MEDS ORDERED: methylPREDNISolone sod succ 40 MG VIAL IV SCH ×2 (10:00→22:00)
[2024-03-08] MEDS ORDERED: Enoxaparin Sodium 40 MG/0.4 ML SYR SC SCH (10:00)
[2024-03-08] MEDS ORDERED: METOPROLOL SUCCINATE XR 25 MG TAB PO SCH (10:00)
[2024-03-08 10:28] LABS: BILIRUBIN 1+ (Negative); BLOOD Negative (Negative); CLARITY Cloudy (Clear); COLOR Dark Yellow (Yellow); GLUCOSE Negative (Negative); KETONE Trace (Negative); LEUKO ESTERASE Negative (Negative); NITRITE Negative (Negative); SPECIFIC GRAVITY >= 1.030 (1.001-1.030)
[2024-03-08 11:48] LABS: EPITHELIAL CELLS 21-30; MUCOUS 2+; RBC 0-2 rbc/hpf (0-2); WBC 0-2 wbc/hpf (0-5); YEAST TRACE
[2024-03-08] MEDS ORDERED: DIGOXIN 500 MCG/2 ML AMP IV ONE (12:25)
[2024-03-08] MEDS ORDERED: ATORVASTATIN CALCIUM 40 MG TABLET PO SCH (13:15)
[2024-03-08] MEDS ORDERED: ASPIRIN, CHEWABLE 81 MG TAB PO ONE (13:15)
[2024-03-08] MEDS ORDERED: AZITHROMYCIN 250 ML IV SCH (17:00)
[2024-03-08] MEDS ORDERED: Enoxaparin Sodium 60 MG/0.6 ML SYR SC SCH (22:00)
[2024-03-09] VITALS (12 sets, daily range): BP systolic 102–148; BP diastolic 60–93
[2024-03-09 05:19] LABS: BUN 24 mg/dl (9-23); CHLORIDE 96 mmol/L (98-107); POTASSIUM 4.4 mmol/L (3.4-5.1)
[2024-03-09 06:15] LABS: HEMATOCRIT 35.6 % (37.0-47.0); MEAN CELL VOLUME 91.5 fl (81.0-99.0); MEAN CORPUSCULAR HGB 27.8 pg (27.0-31.0); MEAN CORPUSCULAR HGB CONC 30.3 g/dl (33.0-37.0); MEAN PLATELET VOLUME 10.5 fl (9.6-12.3); PLATELET COUNT AUTOMATED 288 10*3/uL (130-400); RED BLOOD COUNT 3.89 10*6/uL (4.10-5.10); RED CELL DISTRI WIDTH 15.9 % (0-14.5); WHITE BLOOD COUNT 8.2 10*3/uL (4.8-10.8)
[2024-03-09 06:16] LABS: MANUAL DIFF REFLEX YES
[2024-03-09 06:49] LABS: BURR CELLS FEW; OVALOCYTES FEW; POLYCHROMASIA SLIGHT; TOTAL CELLS COUNTED 100 #CELLS
[2024-03-09 06:50] LABS: PLATELET SUFFICIENCY NORMAL (NORMAL); TOXIC GRANULATION SLIGHT
[2024-03-09] MEDS ORDERED: ASPIRIN, CHEWABLE 81 MG TAB PO SCH (10:00)
[2024-03-09] MEDS ORDERED: Cholecalciferol 2,000 UNIT TABLET (50 MCG) PO SCH (10:00)
[2024-03-10] VITALS (7 sets, daily range): BP systolic 101–124; BP diastolic 60–82
[2024-03-10 06:51] LABS: BUN 18 mg/dl (9-23); CHLORIDE 97 mmol/L (98-107)
[2024-03-10] MEDS ORDERED: METOPROLOL SUCCINATE XR 50 MG TAB PO ONE (12:50)
[2024-03-10] MEDS ORDERED: METOPROLOL SUCCINATE XR 50 MG TAB PO SCH (22:00)
[2024-03-11] VITALS: BP 138/87
[2024-03-11 07:12] LABS: BUN 23 mg/dl (9-23); CHLORIDE 98 mmol/L (98-107); POTASSIUM 4.5 mmol/L (3.4-5.1)
[2024-03-11 08:00] VITALS: BP 139/92
[2024-03-11] MEDS ORDERED: methylPREDNISolone sod succ 40 MG VIAL IV SCH (10:00)
[2024-03-11 12:00] VITALS: BP 129/94
[2024-03-11 15:27] VITALS: BP 115/50
[2024-03-11 20:00] VITALS: BP 108/49
[2024-03-12] VITALS: BP 128/94
[2024-03-12 06:24] LABS: BASO % 0.1 % (0.0-1.0); HEMATOCRIT 37.2 % (37.0-47.0); LYMPH # 0.8 10*3/uL (1.3-4.4); LYMPH % 8.4 % (27.0-41.0); MEAN CELL VOLUME 89.9 fl (81.0-99.0); MEAN CORPUSCULAR HGB 27.8 pg (27.0-31.0); MEAN CORPUSCULAR HGB CONC 30.9 g/dl (33.0-37.0); MEAN PLATELET VOLUME 9.9 fl (9.6-12.3); MONO # 1.2 10*3/uL (0.1-1.0); MONO % 13.3 % (3.0-9.0); NEUT # 7.2 10*3/uL (2.3-7.9); NEUT % 77.3 % (47.0-73.0); PLATELET COUNT AUTOMATED 263 10*3/uL (130-400); RED BLOOD COUNT 4.14 10*6/uL (4.10-5.10); RED CELL DISTRI WIDTH 15.9 % (0-14.5); WHITE BLOOD COUNT 9.3 10*3/uL (4.8-10.8)
[2024-03-12 06:49] LABS: BUN 22 mg/dl (9-23); CHLORIDE 98 mmol/L (98-107); POTASSIUM 4.3 mmol/L (3.4-5.1)
[2024-03-12 08:00] VITALS: BP 160/108
[2024-03-12 12:00] VITALS: BP 149/96
[2024-03-12] MEDS ORDERED: LEVOFLOXACIN750 M2 PO (14:29)
[2024-03-12] MEDS ORDERED: PREDNISONE10 MG PO (14:29)
[2024-03-12] MEDS ORDERED: VITAMIN D350 MCG PO (14:29)
[2024-03-12] MEDS ORDERED: ELIQUIS5 M1 PO (14:29)
[2024-03-12] MEDS ORDERED: MUCUS RELIEF600 MG PO (14:29)
[2024-03-12] MEDS ORDERED: METOPROLOL SUCC50 M1 PO (14:29)
[2024-03-12] MEDS ORDERED: ASPIRIN CHILDRE81 MG PO (14:29)
== END 2024-03-12 17:55 | disposition home or self-care (01) | DRG 871 ==
LOC: ED 14:58 → EDHOLD 17:52 → 4E 17:52 → EDHOLD 17:53 → 4E 03-08 12:12
PROVIDERS: Internal Medicine; Student in an Organized Health Care Education/Training Program; ADMIT Internal Medicine; ATTEND Internal Medicine
PROC: 5A09357 Assistance with Respiratory Ventilation, Less than 24 Consecutive Hours, Continuous Positive Airway Pressure (ICD-10-PCS; principal; 2024-03-07)
DX: A41.9 Sepsis, unspecified organism (principal); I21.4 Non-ST elevation (NSTEMI) myocardial infarction; J69.0 Pneumonitis due to inhalation of food and vomit; J96.21 Acute and chronic respiratory failure with hypoxia; J96.22 Acute and chronic respiratory failure with hypercapnia; I50.33 Acute on chronic diastolic (congestive) heart failure; J44.1 Chronic obstructive pulmonary disease with (acute) exacerbation; I48.21 Permanent atrial fibrillation; J98.11 Atelectasis; E87.29 Other acidosis; Z20.822 Contact with and (suspected) exposure to COVID-19; F32.A Depression, unspecified; I11.0 Hypertensive heart disease with heart failure; E78.2 Mixed hyperlipidemia; F20.9 Schizophrenia, unspecified; Z66 Do not resuscitate; R65.20 Severe sepsis without septic shock; E86.0 Dehydration; Z88.6 Allergy status to analgesic agent; Z88.1 Allergy status to other antibiotic agents; Z88.8 Allergy status to other drugs, medicaments and biological substances; Z91.09 Other allergy status, other than to drugs and biological substances; Z79.899 Other long term (current) drug therapy; Z79.2 Long term (current) use of antibiotics; Z88.7 Allergy status to serum and vaccine; Z98.42 Cataract extraction status, left eye; Z87.891 Personal history of nicotine dependence; Z81.8 Family history of other mental and behavioral disorders; Z81.1 Family history of alcohol abuse and dependence; Z82.49 Family history of ischemic heart disease and other diseases of the circulatory system; Z80.8 Family history of malignant neoplasm of other organs or systems; Z90.710 Acquired absence of both cervix and uterus